=== PATIENT | female | born 1990 | race Caucasian/White ===

== ENCOUNTER 2017-07-03 11:57 | Observation (INO) | payer BC, OTHER ==
[~2017-07-03] VITALS: Ht 160 cm; Wt 108.0 kg
[~2017-07-03 11:57] MED LIST: HYDR-3580 PO
[2017-07-03 12:00] VITALS: BP 132/77; PULSE 82; RESP 20; TEMP 97.6; O2SAT 99
[2017-07-03] MEDS ORDERED: cefTRIAXone INJ 1,000 MG in SODIUM CHLORIDE 0.9% INJ 100 ML IV ONE (13:00)
--- NOTE | 2017-07-03 13:05 | PD ---
HPI Chief Complaint R flank pain Date Seen: Jul 03, 2017 Time Seen: 12:57 Travel History International Travel<30 Days: No Contact w/Intl Traveler<30Days: No Known Affected Area: No History of Present Illness HPI 27y/o @ 36.2wks. She has PNC with Nafisa Sy. She presents today with c/o R flank pain since yesterday, getting worse in severity. She denies dysuria/hematuria. Has a h/o kidney stones. No OB complaints (no ctx, LOF, VB , +FM). Weeks Gestation: 36 Para: 0 : 2 History Past Medical History Narrative Medical h/o kidney stones Obstetric History Obstetric History 1. AB --> D&C 2. current Past Surgical History Narrative Surgical D&C cervical spine discectomy tonsillectomy wisdom teeth extraction ear tubes Family History Family History: Negative Social History Alcohol Use: No Tobacco Use: No Substance Abuse: No Allergies-Medications (Allergen,Severity, Reaction): Coded Allergies: No Known Allergies (Unverified , 04/24/15) Home Meds Active Scripts Hydrocodone/Acetaminophen 7.5 mg/325 mg (Hydrocodone/Acetaminophen 7.5 mg/325 mg ) 1 Tab Tab, 1 TAB PO Q4H Y for PAIN SCALE 1 TO 5, #50 TAB Prov:Hemal Sahu MD 04/24/15 Review of Systems Except as stated in HPI: all other systems reviewed are Neg Physical Exam Vital Signs Date Time Temp Pulse Resp B/P (MAP) Pulse Ox O2 Delivery O2 Flow Rate FiO2 07/03/17 12:00 97.6 82 20 132/77 (95) 99 Narrative General: well developed, well nourished, no acute distress HEENT: normocephalic atraumatic, extraocular movements intact, neck supple Abdomen: soft, gravid, nontender, nondistended, +CVA tenderness on R Uterus: fundus above umbilicus Extremities: full range of motion Skin: normal coloration, no rashes, no suspicious skin lesions noted Neurologic: cranial nerves 2-12 grossly intact, normal muscle tone, normal gait Psychiatric: normal mood and affect, appropriate FHTs: 140s, +accels, no decels, moderate variability, reactive [place]: quiet Cvx: deferred Data Data Vital Signs Reviewed: Yes Orders Orders Vital Signs (Adult) .ON ADMISSION (07/03/17 12:49) ^ Labor Status (07/03/17 12:49) Urinalysis - C+S If Indicated (07/03/17 12:49) ^ Non Stress Test (07/03/17 12:49) Us Kidney/Renal/Bladder (07/03/17 ) Ceftriaxone Inj (Rocephin Inj) (07/03/17 13:00) MDM Plan 27y/o @ 36.2wks with R flank pain. -- UA with large LE and blood, neg nitrites -- pyelonephritis vs. nephrolithiasis with UTI -- US kidney ordered -- 1g IV rocephin in triage -- NST reactive Dispo: pending US findings Diagnosis Diagnosis: Primary Impression: 36 weeks gestation of Additional Impression: Flank pain, acute Daniella Lopez MD Jul 03, 2017 13:05
[2017-07-03 13:26] LABS: BACTERIA, URINE FEW /hpf; BILIRUBIN, URINE NEG (NEG); BLOOD, URINE MOD (NEG); GLUCOSE,URINE NEG (NEG); KETONE, URINE NEG (NEG); MUCUS URINE FEW /lpf (OCC); NITRITE,URINE NEG (NEG); SQUAMOUS EPITHELIAL CELL URINE 6 /hpf (0-5); URINE COLOR YELLOW (YELLW/STRAW); URINE LEUKOCYTE ESTERASE LARGE (NEG)
--- NOTE | 2017-07-03 15:02 | RADRPT ---
EXAM DATE/TIME: 07/03/2017 13:59 [facility] COMPARISON: No previous studies available for comparison. INDICATIONS : Flank pain. MEDICAL HISTORY : Renal calculi. 36 weeks . Numbness. Fractured right clavicle. Cervical disc disease. SURGICAL HISTORY : Tonsillectomy. Dilation and curettage. Ear tubes. ENCOUNTER: Initial ACUITY: 1 day PAIN SCORE: 4/10 LOCATION: Bilateral flank MEASUREMENTS: RIGHT KIDNEY: 11.1 x 6.5 x 6.4 cm LEFT KIDNEY: 10.7 x 5.2 x 5.9 cm FINDINGS: RIGHT KIDNEY: Renal cortex is normal in thickness and echotexture. There is mild prominence of the collecting syste m. No definite stones are demonstrated. No evidence of mass. LEFT KIDNEY: Renal cortex is normal in thickness and echotexture. No hydronephrosis, stone, or mass. BLADDER: Urinary bladder is decompressed. CONCLUSION: 1. Mild prominence of the right collecting system suggestive of some mild hydronephrosis. 2. Otherwise, the rest of the examination is grossly unremarkable. Denis Whelan MD on July 03, 2017 at 14:59 Board Certified Radiologist. This report was verified electronically.
[2017-07-03] MEDS ORDERED: ONDANSETRON ODT 4 MG TAB PO PRN (15:45)
[2017-07-03] MEDS ORDERED: ZOLPIDEM TARTRATE 5 MG TAB PO PRN (15:45)
[2017-07-03] MEDS ORDERED: ACETAMINOPHEN/HYDROcodone 325 MG/5 MG TAB PO PRN ×2 (15:45)
[2017-07-03] MEDS ORDERED: ONDANSETRON HCL 4 MG/2 ML VIAL IV PUSH PRN (15:45)
[2017-07-03] MEDS ORDERED: SODIUM CHLORIDE 0.9% FLUSH 10 ML FLUSH IV FLUSH PRN (15:45)
[2017-07-03] MEDS ORDERED: MORPHINE SULFATE 4 MG/ML INJ IV PUSH PRN (15:45)
[2017-07-03] MEDS ORDERED: ACETAMINOPHEN 325 MG TAB PO PRN (15:45)
--- NOTE | 2017-07-03 16:03 | HHI.PR ---
SYSTEMS ENG Note Note Antepartum Admission H&P HPI Chief Complaint R flank pain Date Seen: Jul 03, 2017 Time Seen: 12:57 Travel History International Travel<30 Days: No Contact w/Intl Traveler<30Days: No Known Affected Area: No History of Present Illness HPI 27y/o @ 36.2wks. She has PNC with Nafisa Sy. She presents today with c/o R flank pain since yesterday, getting worse in severity. She denies dysuria/hematuria. Has a h/o kidney stones. No OB complaints (no ctx, LOF, VB , +FM). Weeks Gestation: 36 Para: 0 : 2 History Past Medical History Narrative Medical h/o kidney stones Obstetric History Obstetric History 1. AB --> D&C 2. current Past Surgical History Narrative Surgical D&C cervical spine discectomy tonsillectomy wisdom teeth extraction ear tubes Family History Family History: Negative Social History Alcohol Use: No Tobacco Use: No Substance Abuse: No Allergies-Medications (Allergen,Severity, Reaction): Coded Allergies: No Known Allergies (Unverified , 04/24/15) Home Meds Active Scripts Hydrocodone/Acetaminophen 7.5 mg/325 mg (Hydrocodone/Acetaminophen 7.5 mg/325 mg ) 1 Tab Tab, 1 TAB PO Q4H Y for PAIN SCALE 1 TO 5, #50 TAB Prov:Hemal Sahu MD 04/24/15 Review of Systems Except as stated in HPI: all other systems reviewed are Neg Physical Exam Vital Signs Date Time Temp Pulse Resp B/P (MAP) Pulse Ox O2 Delivery O2 Flow Rate FiO2 07/03/17 12:00 97.6 82 20 132/77 (95) 99 Narrative General: well developed, well nourished, no acute distress HEENT: normocephalic atraumatic, extraocular movements intact, neck supple Abdomen: soft, gravid, nontender, nondistended, +CVA tenderness on R Uterus: fundus above umbilicus Extremities: full range of motion Skin: normal coloration, no rashes, no suspicious skin lesions noted Neurologic: cranial nerves 2-12 grossly intact, normal muscle tone, normal gait Psychiatric: normal mood and affect, appropriate FHTs: 140s, +accels, no decels, moderate variability, reactive Gisela: quiet Cvx: deferred Data Data Vital Signs Reviewed: Yes Orders Orders Vital Signs (Adult) .ON ADMISSION (07/03/17 12:49) ^ Labor Status (07/03/17 12:49) Urinalysis - C+S If Indicated (07/03/17 12:49) ^ Non Stress Test (07/03/17 12:49) Us Kidney/Renal/Bladder (07/03/17 ) Ceftriaxone Inj (Rocephin Inj) (07/03/17 13:00) MDM Plan 27y/o @ 36.2wks with R flank pain. -- UA with large LE and blood, neg nitrites -- pyelonephritis vs. nephrolithiasis with UTI -- US kidney ordered -- 1g IV rocephin in triage -- NST reactive Dispo: pending US findings Diagnosis Diagnosis: Primary Impression: 36 weeks gestation of Additional Impression: Flank pain, acute Daniella Lopez MD Jul 03, 2017 13:05 Addendum: Daniella Lopez MD on 07/03/17 @ 15:50 Renal US performed and demonstrates mild R hydronephrosis. No evidence fo calculi or stranding. Pt reports worsening of flank pain. Plan to admit to [facility] for IV abx. Rocephin 1g q12hrs IV. [place] PO and morphine IV PRN. Regular diet, SCDs. BID NSTs. Daniella Lopez MD Jul 03, 2017 16:03
[2017-07-03] MEDS ORDERED: ALFALFA PO ×2 (16:37)
[2017-07-03] MEDS: LACTATED RINGER'S 1000 ML INJ 1,000 ML IV SCH ×2 (16:42→21:28)
[2017-07-03] MEDS: SODIUM CHLORIDE 0.9% FLUSH 10 ML FLUSH IV FLUSH SCH (21:00)
[2017-07-03] MEDS: cefTRIAXone INJ 1,000 MG in SODIUM CHLORIDE 0.9% INJ 100 ML IV SCH (21:03)
[2017-07-04] MEDS: LACTATED RINGER'S 1000 ML INJ 1,000 ML IV SCH (07:33)
--- NOTE | 2017-07-04 08:32 | PD.OB.ANTE ---
Subjective Diagnosis: (1) Pyelonephritis Diagnosis: Principal (2) 36 weeks gestation of Diagnosis: Principal Interval History Patient seen and examined this morning by medical team. No acute events overnight per nursing staff. Patient states that her pain is well controlled and denies any new fevers, chills, dysuria, hematuria, or stone passage. She endorses good movement and also denies any vaginal discharge or loss of fluid. Otherwise she has no complaints and denies any chest pain, SOB, ABD pain , NVD, or calf tenderness. Antepartum ROS: Reports: movement normal, Denies: New complaints, Loss of fluid, Vaginal bleeding, Contractions Objective Vital Signs Vital Signs Date Time Temp Pulse Resp B/P (MAP) Pulse Ox O2 Delivery O2 Flow Rate FiO2 07/03/17 12:00 97.6 82 20 132/77 (95) 99 Lab & Micro Results Test 07/03/17 12:30 Urine Color YELLOW Urine Turbidity HAZY Urine pH 7.0 Urine Specific [place] 1.006 Urine Protein TRACE mg/dL Urine Glucose (UA) NEG mg/dL Urine Ketones NEG mg/dL Urine Occult Blood MOD Urine Nitrite NEG Urine Bilirubin NEG Urine Urobilinogen LESS THAN 2.0 MG/DL Urine Leukocyte Esterase LARGE Urine RBC 19 /hpf Urine WBC 20 /hpf Urine Squamous Epithelial Cells 6 /hpf Urine Bacteria FEW /hpf Urine Mucus FEW /lpf Microscopic Urinalysis Comment CULTURE INDICATED Date/Time Source Procedure Growth Status 07/03/17 12:30 Urine Clean Catch Urine Culture Pending Received Physical Exam GENERAL: Well-nourished, well-developed patient. CARDIOVASCULAR: Regular rate and rhythm without murmurs, gallops, or rubs. RESPIRATORY: Breath sounds equal bilaterally. No accessory muscle use. ABDOMEN/GI: Abdomen soft, non-tender. Fundus: 36w FHT's: Category: 1 Baseline: 130s Reactive: Positive Variability: Moderate Decels: None EXTREMITIES: No cyanosis or edema, non-tender, without signs of DVT. Assessment and Plan Problem List: (1) Pyelonephritis ICD Codes: N12 - Tubulo-interstitial nephritis, not specified as acute or chronic Status: Acute (2) 36 weeks gestation of ICD Codes: Z3A.36 - 36 weeks gestation of Status: Acute Assessment and Plan Ms. Cade is a 27 y/o at 36/3 weeks gestation admitted for pyelonephritis 1. IUP at 36 weeks -Continue routine OB care -Encourage oral hydration and PNV -Category 1 tracing, reassuring 2. Pyelonephritis -UA concerning for infection -Urine culture pending -Renal US: Mild prominence of the R collecting system suggestive of mild hydronephrosis. Otherwise normal. -Continue Ceftriaxone (07/03- ) -[place] as needed for pain Discharge: Possibly today pending clinical course. Plan to discharge home on antibiotics for a minimum of 10 total days. DW: Levi Fenton MD R2 Jul 04, 2017 08:32
[2017-07-04] MEDS: cefTRIAXone INJ 1,000 MG in SODIUM CHLORIDE 0.9% INJ 100 ML IV SCH (08:54)
[2017-07-04] MEDS: SODIUM CHLORIDE 0.9% FLUSH 10 ML FLUSH IV FLUSH SCH (08:55)
[2017-07-04] MEDS ORDERED: MULTIVIT/MIN/PREN/FOL AC/IRON PRENATAL TAB PO SCH (09:00)
[2017-07-04] MEDS ORDERED: DOCUSATE SODIUM 100 MG CAP PO SCH (09:00)
[2017-07-04] MEDS ORDERED: MACR100C2 PO (09:09)
--- NOTE | 2017-07-04 09:09 | HHI.DCPOC ---
Discharge Care Plan Diagnosis: (1) Pyelonephritis (2) 36 weeks gestation of Report Symptoms to Your Doctor -Temperature above 100.5 degrees -Redness, of incision or excessive or foul smelling drainage -Unusual pain or calf pain -Increased vaginal bleeding -Painful or difficulty urinating -Feelings of extreme sadness or anxiety after 2 weeks Goals to Promote Your Health * To prevent worsening of your condition and complications * To maintain your health at the optimal level Directions to Meet Your Goals Take your medications as prescribed Follow your dietary instruction Follow activity as directed Ensure plenty of rest for recovery Drink fluids for hydration Keep your appointments as scheduled Take your immunizations and boosters as scheduled If your symptoms worsen call your PCP, if no PCP go to Urgent Care Center or Emergency Room Smoking is Dangerous to Your Health. Avoid second hand smoke Call the 24-hour crisis hotline for domestic abuse at Levi Whitehead MD R2 Jul 04, 2017 09:09
== END 2017-07-04 09:30 | disposition home or self-care (01) ==
LOC: HOBED 11:57 → H2EA 16:02
PROVIDERS: ADMIT Obstetrics & Gynecology; ATTEND Obstetrics & Gynecology
DX: O23.03 Infections of kidney in pregnancy, third trimester (principal); N12 Tubulo-interstitial nephritis, not specified as acute or chronic; Z3A.36 36 weeks gestation of pregnancy; Z87.442 Personal history of urinary calculi
CPT/HCPCS: 76775; 81001; 87086; 96361; 96365; 96366; 99285; G0378; J0696; J7120

== ENCOUNTER 2017-07-06 21:38 | Inpatient (IN) | payer BC ==
[2017-07-06] VITALS (7 sets, daily range): BP systolic 104; BP diastolic 43; PULSE 72–92; RESP 18; TEMP 98
[~2017-07-06] VITALS: Ht 160 cm; Wt 108.0 kg
[~2017-07-06 21:38] MED LIST changes: +ALFALFA PO; +MACR100C2 PO
[2017-07-06] MEDS ORDERED: LACTATED RINGER'S 1000 ML INJ 1,000 ML IV SCH (22:29)
--- NOTE | 2017-07-06 22:48 | PD ---
HPI Chief Complaint right flank pain Date Seen: Jul 06, 2017 Time Seen: 22:37 Travel History International Travel<30 Days: No Contact w/Intl Traveler<30Days: No Known Affected Area: No History of Present Illness HPI pt is a 27 y/o @ 38 3/7 weeks w/ edc 07/16/17 present w/ c/o right flank pain. pt. states was here 2 days ago w/ same c/o and dx w/ pyelneph vs stone. pt. states has h/o stones. pt. txd w/ rocephin and had some improvement in pain and d/c on po macrobid. pt. states that began having pain again last pm and worsened today. states feels like stone of past. denies fever/chills, n/v , cp/sob. . states pain is just upper right flank, sharp and dull. pt. states voiding and helena po w/o diff. +FM, no lof/vb. Weeks Gestation: 38 Para: 0 : 2 History Past Medical History Medical History: Denies Significant Hx Obstetric History Obstetric History w/ sab and d&c x 1 Past Surgical History Narrative Surgical D&C Family History Family History: Negative Social History Alcohol Use: No Tobacco Use: No Substance Abuse: No Allergies-Medications (Allergen,Severity, Reaction): Coded Allergies: No Known Allergies (Unverified , 04/24/15) Home Meds Active Scripts Nitrofurantoin Monohydrate Macrocrystals (Macrobid) 100 Mg Capsule, 100 MG PO BID for Infection, #30 CAP 0 Refills Take one capsule twice a day for 13 days, then take one capsule nightly until delivery. Prov:Levi Whitehead MD R2 07/04/17 Reported Medications [Ceiba] No Conflict Check, 7 TAB PO DAILY 07/03/17 Discontinued Scripts Hydrocodone/Acetaminophen 7.5 mg/325 mg (Hydrocodone/Acetaminophen 7.5 mg/325 mg ) 1 Tab Tab, 1 TAB PO Q4H Y for PAIN SCALE 1 TO 5, #50 TAB Prov:Hemal Sahu MD 04/24/15 Physical Exam Narrative GENERAL: Well-nourished, well-developed patient. SKIN: Warm and dry. HEAD: Normocephalic and atraumatic. EYES: No scleral icterus. No injection or drainage. ENT: No nasal drainage noted. Mucous membranes pink. Airway patent. NECK: Supple, trachea midline. No JVD. CARDIOVASCULAR: Regular rate and rhythm without murmurs, gallops, or rubs. RESPIRATORY: Breath sounds equal bilaterally. No accessory muscle use. ABDOMEN/GI: Abdomen soft, non-tender, bowel sounds present, no rebound, no guarding Gravid right cva tenderness GENITOURINARY: FHT's: Category: 1 Reactive: + Variability: mod Decels:none EXTREMITIES: No cyanosis or edema. BACK: Nontender without obvious deformity. CVA tenderness. NEUROLOGICAL: Awake and alert. Motor and sensory grossly within normal limits. Five out of 5 muscle strength in all muscle groups. Normal speech. Data Data Vital Signs Reviewed: Yes Orders Orders Admit To Inpatient (07/06/17 ) Code Status (07/06/17 22:29) Vital Signs (Adult) .Per protocol (07/06/17 22:29) Activity Oob Ad Shyann (07/06/17 22:29) Lactated Ringer's 1000 Ml Inj (Lr 1000 M (07/06/17 22:29) Fentanyl Inj (Fentanyl Inj) (07/06/17 22:30) Fentanyl Inj (Fentanyl Inj) (07/06/17 22:30) Complete Blood Count With Diff (07/06/17 22:29) Urinalysis - C+S If Indicated (07/06/17 22:29) Inpatient Certification (07/06/17 ) Ceftriaxone Inj (Rocephin Inj) (07/06/17 22:45) Us Kidney/Renal/Bladder (07/06/17 ) [facility] Medical Record Reviewed: Yes Plan pt. to be admitted to hospital. pt. to have rocephin 2 gm q 12. pt. to have cath ua w/ c&s. pt. to have renal u/s r/o stones. Condition: Stable Александр Ernandez Jr., MD Jul 06, 2017 22:48
[2017-07-06 22:50] LABS: AUTOMATED NEUTROPHIL # 11.2 TH/MM3 (1.8-7.7); BASOPHIL # 0.1 TH/MM3 (0-0.2); BASOPHIL % 0.7 % (0.0-2.0); EOSINOPHIL % 0.3 % (0.0-4.0); HEMATOCRIT 33.1 % (35.0-46.0); HEMOGLOBIN 11.2 GM/DL (11.6-15.3); LYMPH % 17.2 % (9.0-44.0); LYMPHOCYTE # 2.5 TH/MM3 (1.0-4.8); MEAN CELL VOLUME 79.8 FL (80.0-100.0); MEAN CORPUSCULAR HGB CONC 33.8 % (32.0-36.0); MEAN PLATELET VOLUME 8.4 FL (7.0-11.0); MONO % 5.1 % (0.0-8.0); MONOCYTE # 0.7 TH/MM3 (0-0.9); NEUT % 76.7 % (16.0-70.0); PLATELET COUNT 282 TH/MM3 (150-450); RED BLOOD COUNT 4.14 MIL/MM3 (4.00-5.30); RED CELL DISTRIBUTION WIDTH 14.7 % (11.6-17.2); WHITE BLOOD COUNT 14.5 TH/MM3 (4.0-11.0)
[2017-07-06] MEDS: cefTRIAXone INJ 2,000 MG in SODIUM CHLORIDE 0.9% INJ 100 ML IV SCH (23:00)
[2017-07-06 23:21] LABS: BILIRUBIN, URINE NEG (NEG); BLOOD, URINE MOD (NEG); GLUCOSE,URINE NEG (NEG); KETONE, URINE 10 mg/dL (NEG); MUCUS URINE MOD /lpf (OCC); NITRITE,URINE NEG (NEG); RENAL EPITHELIAL CELLS <1 /hpf; SQUAMOUS EPITHELIAL CELL URINE 2 /hpf (0-5); TRANSITIONAL EPI CELLS, URINE <1 /hpf; URINE COLOR YELLOW (YELLW/STRAW); URINE LEUKOCYTE ESTERASE SMALL (NEG)
[2017-07-07] VITALS (26 sets, daily range): BP systolic 118–127; BP diastolic 70–83; PULSE 69–82; RESP 18
--- NOTE | 2017-07-07 00:13 | HHI.HP ---
History & Physical H&P HPI Chief Complaint right flank pain Date Seen: Jul 06, 2017 Time Seen: 22:37 Travel History International Travel<30 Days: No Contact w/Intl Traveler<30Days: No Known Affected Area: No History of Present Illness HPI pt is a 27 y/o @ 38 3/7 weeks w/ edc 07/16/17 present w/ c/o right flank pain. pt. states was here 2 days ago w/ same c/o and dx w/ pyelneph vs stone. pt. states has h/o stones. pt. txd w/ rocephin and had some improvement in pain and d/c on po macrobid. pt. states that began having pain again last pm and worsened today. states feels like stone of past. denies fever/chills, n/v , cp/sob. . states pain is just upper right flank, sharp and dull. pt. states voiding and helena po w/o diff. +FM, no lof/vb. Weeks Gestation: 38 Para: 0 : 2 History Past Medical History Medical History: Denies Significant Hx Obstetric History Obstetric History w/ sab and d&c x 1 Past Surgical History Narrative Surgical D&C Family History Family History: Negative Social History Alcohol Use: No Tobacco Use: No Substance Abuse: No Allergies-Medications (Allergen,Severity, Reaction): Coded Allergies: No Known Allergies (Unverified , 04/24/15) Home Meds Active Scripts Nitrofurantoin Monohydrate Macrocrystals (Macrobid) 100 Mg Capsule, 100 MG PO BID for Infection, #30 CAP 0 Refills Take one capsule twice a day for 13 days, then take one capsule nightly until delivery. Prov:Levi Whitehead MD R2 07/04/17 Reported Medications [[place]] No Conflict Check, 7 TAB PO DAILY 07/03/17 Discontinued Scripts Hydrocodone/Acetaminophen 7.5 mg/325 mg (Hydrocodone/Acetaminophen 7.5 mg/325 mg ) 1 Tab Tab, 1 TAB PO Q4H Y for PAIN SCALE 1 TO 5, #50 TAB Prov:Hemal Sahu MD 04/24/15 Physical Exam Narrative GENERAL: Well-nourished, well-developed patient. SKIN: Warm and dry. HEAD: Normocephalic and atraumatic. EYES: No scleral icterus. No injection or drainage. ENT: No nasal drainage noted. Mucous membranes pink. Airway patent. NECK: Supple, trachea midline. No JVD. CARDIOVASCULAR: Regular rate and rhythm without murmurs, gallops, or rubs. RESPIRATORY: Breath sounds equal bilaterally. No accessory muscle use. ABDOMEN/GI: Abdomen soft, non-tender, bowel sounds present, no rebound, no guarding Gravid right cva tenderness GENITOURINARY: FHT's: Category: 1 Reactive: + Variability: mod Decels:none EXTREMITIES: No cyanosis or edema. BACK: Nontender without obvious deformity. CVA tenderness. NEUROLOGICAL: Awake and alert. Motor and sensory grossly within normal limits. Five out of 5 muscle strength in all muscle groups. Normal speech. Data Data Vital Signs Reviewed: Yes Orders Orders Admit To Inpatient (07/06/17 ) Code Status (07/06/17 22:29) Vital Signs (Adult) .Per protocol (07/06/17 22:29) Activity Oob Ad Shyann (07/06/17 22:29) Lactated Ringer's 1000 Ml Inj (Lr 1000 M (07/06/17 22:29) Fentanyl Inj (Fentanyl Inj) (07/06/17 22:30) Fentanyl Inj (Fentanyl Inj) (07/06/17 22:30) Complete Blood Count With Diff (07/06/17 22:29) Urinalysis - C+S If Indicated (07/06/17 22:29) Inpatient Certification (07/06/17 ) Ceftriaxone Inj (Rocephin Inj) (07/06/17 22:45) Us Kidney/Renal/Bladder (07/06/17 ) [facility] Medical Record Reviewed: Yes Plan pt. to be admitted to hospital. pt. to have rocephin 2 gm q 12. pt. to have cath ua w/ c&s. pt. to have renal u/s r/o stones. Condition: Stable Александр Ernandez Jr., MD, Arthur N. Jr. MD Jul 07, 2017 00:13
[2017-07-07] MEDS ORDERED: SODIUM CHLOR 0.9% 1000 ML INJ 1,000 ML IV SCH (05:30)
--- NOTE | 2017-07-07 08:51 | RADRPT ---
EXAM DATE/TIME: 07/07/2017 08:01 [facility] COMPARISON: US KIDNEY/RENAL/BLADDER, July 03, 2017, 13:59. INDICATIONS : Flank pain. MEDICAL HISTORY : Kidney stones. SURGICAL HISTORY : Tonsillectomy. D&C. PE tubes. ENCOUNTER: Subsequent ACUITY: 4-6 days PAIN SCORE: LOCATION: Bilateral flank MEASUREMENTS: RIGHT KIDNEY: 13.1 x 5.9 x 6.0 cm LEFT KIDNEY: 11.7 x 5.9 x 4.7 cm FINDINGS: RIGHT KIDNEY: Renal cortex is normal in thickness and echotexture. Mild hydronephrosis of the right kidney unchange d No stone, or mass. LEFT KIDNEY: Renal cortex is normal in thickness and echotexture. No hydronephrosis, or mass. 3 x 2 mm calcifica tion lower pole left kidney consistent with a stone BLADDER: Within normal limits given the degree of distension. CONCLUSION: Mild hydronephrosis right kidney. Small stone lower pole left kidney. No interval change. Carlos Johns MD on July 07, 2017 at 8:49 Board Certified Radiologist. This report was verified electronically.
--- NOTE | 2017-07-07 10:06 | PD.OB.ANTE ---
Subjective Interval History Patient reports continued right-sided back pain at this time. Pain has not changed position, stays on the right, is still present however is reduced with pain medications. She also reports blood in her urine, "it smells like asparagus" denies dysuria, frequency. States she has normal light white discharge today. Denies discharge of other color, malodorous smell, bloody discharge. No abdominal pain, chest pain, shortness of breath, change in vision , headache. No nausea, vomiting, fever, chills. No other complaints today. Objective Vital Signs Vital Signs Date Time Temp Pulse Resp B/P (MAP) Pulse Ox O2 Delivery O2 Flow Rate FiO2 07/07/17 07:56 78 127/83 (98) 07/07/17 03:32 22 07/07/17 01:51 18 07/07/17 01:45 77 07/07/17 01:40 75 07/07/17 01:35 82 07/07/17 01:30 75 07/07/17 01:25 76 07/07/17 01:20 71 07/07/17 01:15 75 07/07/17 01:10 74 07/07/17 01:05 74 07/07/17 01:00 18 07/07/17 01:00 75 07/07/17 01:00 18 07/07/17 00:55 70 07/07/17 00:50 69 07/07/17 00:45 72 07/07/17 00:40 75 07/07/17 00:35 79 07/07/17 00:30 71 07/07/17 00:25 70 07/07/17 00:20 72 07/07/17 00:15 72 07/07/17 00:10 79 07/07/17 00:05 71 07/07/17 00:00 76 07/07/17 00:00 18 07/06/17 23:55 72 07/06/17 23:50 75 07/06/17 23:45 77 07/06/17 23:30 98.0 18 07/06/17 23:25 91 07/06/17 23:20 92 104/43 (63) 07/06/17 23:15 83 Lab & Micro Results Test 07/06/17 22:20 07/06/17 22:40 White Blood Count 14.5 TH/MM3 Red Blood Count 4.14 MIL/MM3 Hemoglobin 11.2 GM/DL Hematocrit 33.1 % Mean Corpuscular Volume 79.8 FL Mean Corpuscular Hemoglobin 27.0 PG Mean Corpuscular Hemoglobin Concent 33.8 % Red Cell Distribution Width 14.7 % Platelet Count 282 TH/MM3 Mean Platelet Volume 8.4 FL Neutrophils (%) (Auto) 76.7 % Lymphocytes (%) (Auto) 17.2 % Monocytes (%) (Auto) 5.1 % Eosinophils (%) (Auto) 0.3 % Basophils (%) (Auto) 0.7 % Neutrophils # (Auto) 11.2 TH/MM3 Lymphocytes # (Auto) 2.5 TH/MM3 Monocytes # (Auto) 0.7 TH/MM3 Eosinophils # (Auto) 0.0 TH/MM3 Basophils # (Auto) 0.1 TH/MM3 CBC Comment DIFF FINAL Differential Comment Urine Color YELLOW Urine Turbidity CLEAR Urine pH 6.0 Urine Specific [place] 1.009 Urine Protein TRACE mg/dL Urine Glucose (UA) NEG mg/dL Urine Ketones 10 mg/dL Urine Occult Blood MOD Urine Nitrite NEG Urine Bilirubin NEG Urine Urobilinogen LESS THAN 2.0 MG/DL Urine Leukocyte Esterase SMALL Urine RBC 29 /hpf Urine WBC 7 /hpf Urine Squamous Epithelial Cells 2 /hpf Urine Transitional Epithelial Cells <1 /hpf Urine Renal Epithelial Cells <1 /hpf Urine Mucus MOD /lpf Microscopic Urinalysis Comment CATH-CULT NOT IND Physical Exam GENERAL: Well-nourished, well-developed patient. CARDIOVASCULAR: Regular rate and rhythm without murmurs, gallops, or rubs. RESPIRATORY: Breath sounds equal bilaterally. No accessory muscle use. ABDOMEN/GI: Abdomen soft, non-tender, no rebound. BACK: Right-sided CVA tenderness FHT's: Category: 1 Baseline: 130 Reactive: Yes Variability: Moderate Decels: None EXTREMITIES: No cyanosis or edema, non-tender, without signs of DVT. Assessment and Plan Assessment and Plan 27-year-old at 36/6 who initially presented with right flank pain which has been described as how it felt last time she had a kidney stone. History of many episodes of nephrolithiasis in the past. Afebrile. UA shows moderate blood, small LE, 7 WBC. WBCs 14.5. renal ultrasound shows mild hydronephrosis in the right kidney, small stone in the lower left kidney pole. No interval change. Being treated with ceftriaxone 2 g every 12 hours -Continue ceftriaxone 2 g every 12 hours -Follow-up CT abdomen for nephrolithiasis. Risks and benefits previously discussed with patient by Dr. Ernandez, patient expressed understanding and agreed -Fentanyl as needed for pain -Category 1 tracing reassuring -Continue FHT monitoring D/W Giuliano Kilpatrick MD R1 Jul 07, 2017 10:06
[2017-07-07] MEDS ORDERED: ONDANSETRON HCL 4 MG/2 ML VIAL IV PUSH PRN (10:30)
[2017-07-07] MEDS: cefTRIAXone INJ 2,000 MG in SODIUM CHLORIDE 0.9% INJ 100 ML IV SCH (10:40)
--- NOTE | 2017-07-07 15:25 | RADRPT ---
EXAM DATE/TIME: 07/07/2017 14:52 [facility] COMPARISON: No previous studies available for comparison. INDICATIONS : Right flank pain, history of multiple renal stones ORAL CONTRAST: No oral contrast ingested. RADIATION DOSE: 19.95 CTDIvol (mGy) MEDICAL HISTORY : Renal calculi. SURGICAL HISTORY : None. ENCOUNTER: Initial ACUITY: 1 day PAIN SCALE: 6/10 LOCATION: Right flank TECHNIQUE: Volumetric scanning of the abdomen was performed. Using automated exposure control and adjustment of the mA and/or kV according to patient size, radiation dose was kept as low as reasonably achievable to obtain optimal diagnostic quality images. DICOM format image data is available electronically for review and comparison. FINDINGS: LOWER LUNGS: The visualized lower lungs are clear. LIVER: Homogeneous density without lesion. There is no dilation of the biliary tree. No calcified gallston es. SPLEEN: Normal size without lesion. PANCREAS: Within normal limits. KIDNEYS: Normal in size and shape. There is no no hydronephrosis on the left. There are 3 punctate nonobstruc ting left-sided renal calculi measuring 2-4 mm in size. Mild to moderate hydronephrosis of the right kidney and proximal hydroureter. ADRENAL GLANDS: Within normal limits. AORTA/RETROPERITONEAL: There is no aneurysm or lymphadenopathy. BOWEL/MESENTERY: The stomach and visualized small and large bowel demonstrate no abnormality. Intrauterine n oted. MUSCULOSKELETAL: Within normal limits for patient age. CONCLUSION: 1. Mild to moderate hydronephrosis of the right kidney and hydroureter proximally. Suspect a distal o bstructing calculus. 2. A few punctate nonobstructing left-sided renal calculi. Simon Colvin MD on July 07, 2017 at 15:22 Board Certified Radiologist. This report was verified electronically.
[2017-07-07] MEDS ORDERED: HYDR-3516 PO (16:48)
--- NOTE | 2017-07-07 16:48 | HHI.DCPOC ---
Discharge Care Plan Diagnosis: (1) Pyelonephritis Report Symptoms to Your Doctor -Temperature above 100.5 degrees -Redness, of incision or excessive or foul smelling drainage -Unusual pain or calf pain -Increased vaginal bleeding -Painful or difficulty urinating -Feelings of extreme sadness or anxiety after 2 weeks Goals to Promote Your Health * To prevent worsening of your condition and complications * To maintain your health at the optimal level Directions to Meet Your Goals Take your medications as prescribed Follow your dietary instruction Follow activity as directed Ensure plenty of rest for recovery Drink fluids for hydration Keep your appointments as scheduled Take your immunizations and boosters as scheduled If your symptoms worsen call your PCP, if no PCP go to Urgent Care Center or Emergency Room Smoking is Dangerous to Your Health. Avoid second hand smoke Call the 24-hour crisis hotline for domestic abuse at Giuliano Paredes MD R1 Jul 07, 2017 16:48
[2017-07-07] MEDS ORDERED: ACETAMINOPHEN/HYDROcodone 325 MG/5 MG TAB PO ONE (17:00)
== END 2017-07-07 17:28 | disposition home or self-care (01) | DRG 781 ==
LOC: HOBED 21:38 → H2EA 22:41
PROVIDERS: ADMIT Obstetrics & Gynecology; ATTEND Obstetrics & Gynecology
DX: O26.833 Pregnancy related renal disease, third trimester (principal); N13.2 Hydronephrosis with renal and ureteral calculous obstruction; Z3A.38 38 weeks gestation of pregnancy
CPT/HCPCS: 51701; 59025; 74150; 76775; 81001; 85025; 87086; J0696; J2405; J3010; J7030; J7120

== ENCOUNTER 2017-07-28 18:04 | Inpatient (IN) | payer BC ==
[~2017-07-28] VITALS: Ht 160 cm; Wt 110.0 kg
[~2017-07-28 18:04] MED LIST changes: -ALFALFA PO; +HYDR-3516 PO; -HYDR-3580 PO
[2017-07-28] MEDS ORDERED: LACTATED RINGER'S 1000 ML INJ 1,000 ML IV PRN (20:40)
--- NOTE | 2017-07-28 20:40 | HHI.HP ---
HPI Chief Complaint Patient here for induction Date Seen: Jul 28, 2017 Time Seen: 20:35 Travel History International Travel<30 Days: No Contact w/Intl Traveler<30Days: No Known Affected Area: No History of Present Illness HPI Patient is a 27-year-old who is at 41 weeks by second trimester ultrasound and 41 weeks 5 days by fairly certain last menstrual cycle. She has been seeing Nafisa Sy for care which has been uncomplicated. Patient states that her cervix has been negative and initially she had a positive group B strep but after she was treated for UTI with antibiotics the office repeated her group B strep but it was only an intravaginal culture and not a rectal culture. Patient is very interested in our policy of delayed cord clamping and delay bathing and she also desires to take her placenta home Weeks Gestation: 41 Para: 0 : 2 Miscarriage: 1 History Past Medical History Medical History: Denies Significant Hx Past Surgical History Narrative Surgical Tonsillectomy [place] teeth Cervical discectomy Family History Family History: Negative Social History Alcohol Use: No Tobacco Use: No Substance Abuse: No Allergies-Medications (Allergen,Severity, Reaction): Coded Allergies: No Known Allergies (Unverified , 04/24/15) Home Meds Active Scripts Hydrocodone-Acetaminophen (Hydrocodone-Acetaminophen) 5-325 mg Tab, 1 TAB PO Q6H Y for PAIN, #12 TAB 0 Refills Prov:Giuliano Paredes MD R1 07/07/17 Nitrofurantoin Monohydrate Macrocrystals (Macrobid) 100 Mg Capsule, 100 MG PO BID for Infection, #30 CAP 0 Refills Take one capsule twice a day for 13 days, then take one capsule nightly until delivery. Prov:Levi Whitehead MD R2 07/04/17 Review of Systems Except as stated in HPI: all other systems reviewed are Neg Physical Exam Narrative GENERAL: Well-nourished, well-developed patient. SKIN: Warm and dry. HEAD: Normocephalic and atraumatic. EYES: No scleral icterus. No injection or drainage. ENT: No nasal drainage noted. Mucous membranes pink. Airway patent. NECK: Supple, trachea midline. No JVD. CARDIOVASCULAR: Regular rate and rhythm without murmurs, gallops, or rubs. RESPIRATORY: Breath sounds equal bilaterally. No accessory muscle use. ABDOMEN/GI: Abdomen soft, non-tender, bowel sounds present, no rebound, no guarding Gravid to [-] weeks size 40 Fundal Height: [-] GENITOURINARY: External Genitalia: intact and normal in appearance BUS glands: [-] Normal Cervix: [-] Posterior Dilatation: [-] Closed Effacement: [-] Long Station: [-] High Presentation: [-] Vertex Membranes: [intact or ruptured] intact Uterine Contractions: [-] Absent FHT's: Category: [-] 1 Baseline: [-] 140 Reactive: [-] Moderate Variability: [-] Moderate Decels: [-] Absent EXTREMITIES: No cyanosis or edema. BACK: Nontender without obvious deformity. No CVA tenderness. NEUROLOGICAL: Awake and alert. Motor and sensory grossly within normal limits. Five out of 5 muscle strength in all muscle groups. Normal speech. Caprini VTE Risk Assessment Caprini VTE Risk Assessment: No/Low Risk (score <= 1) Caprini Risk Assessment Model Point Value = 1 Point Value = 2 Point Value = 3 Point Value = 5 Age 41-60 Minor surgery BMI > 25 kg/m2 Swollen legs Varicose veins or History of unexplained or recurrent spontaneous Oral contraceptives or hormone replacement Sepsis (< 1 month) Serious lung disease, including pneumonia (< 1 month) Abnormal pulmonary function Acute myocardial infarction Congestive heart failure (< 1 month) History of inflammatory bowel disease Medical patient at bed rest Age 61-74 Arthroscopic surgery Major open surgery (> 45 min) Laparoscopic surgery (> 45 min) Malignancy Confined to bed (> 72 hours) Immobilizing plaster cast Central venous access Age >= 75 History of VTE Family history of VTE Factor V Leiden Prothrombin [id number] Lupus anticoagulant Anticardiolipin antibodies Elevated serum homocysteine Heparin-induced thrombocytopenia Other congenital or acquired thrombophilia Stroke (< 1 month) Elective arthroplasty Hip, pelvis, or leg fracture Acute spinal cord injury (< 1 month) Prophylaxis Regimen Total Risk Factor Score Risk Level Prophylaxis Regimen 0-1 Low Early ambulation 2 Moderate Order ONE of the following: *Sequential Compression Device (SCD) *Heparin 5000 units SQ BID 3-4 Higher Order ONE of the following medications: *Heparin 5000 units SQ TID *Enoxaparin/Lovenox 40 mg SQ daily (WT < 150 kg, CrCl > 30 mL/min) *Enoxaparin/Lovenox 30 mg SQ daily (WT < 150 kg, CrCl > 10-29 mL/min) *Enoxaparin/Lovenox 30 mg SQ BID (WT < 150 kg, CrCl > 30 mL/min) AND/OR *Sequential Compression Device (SCD) 5 or more Highest Order ONE of the following medications: *Heparin 5000 units SQ TID (Preferred with Epidurals) *Enoxaparin/Lovenox 40 mg SQ daily (WT < 150 kg, CrCl > 30 mL/min) *Enoxaparin/Lovenox 30 mg SQ daily (WT < 150 kg, CrCl > 10-29 mL/min) *Enoxaparin/Lovenox 30 mg SQ BID (WT < 150 kg, CrCl > 30 mL/min) AND *Sequential Compression Device (SCD) Data Data Vital Signs Reviewed: Yes Orders Orders Complete Blood Count With Diff (07/28/17 20:13) Abo/Rh Blood Type (07/28/17 20:13) Hold Clot (07/28/17 20:13) Urinalysis - C+S If Indicated (07/28/17 20:13) Specimen To Be Collected PRN (07/28/17 20:13) Ob/Psych Drug Screen, Urine (07/28/17 20:13) Group B Strep: Positive Assessment/Plan Problem List: (1) 41 weeks gestation of ICD Codes: Z3A.41 - 41 weeks gestation of (2) Post-term infant with 40-42 completed weeks of gestation ICD Codes: P08.21 - Post-term (3) Mother positive for group B Streptococcus colonization ICD Codes: P00.2 - affected by maternal infectious and parasitic diseases Gianna Cantu MD Jul 28, 2017 20:40
[2017-07-28] MEDS ORDERED: MINERAL OIL 10 ML VIAL TOPICAL PRN (20:45)
[2017-07-28] MEDS ORDERED: LIDOCAINE HCL 1% 50 ML VIAL I-DERMAL PRN (20:45)
[2017-07-28] MEDS ORDERED: CITRIC ACID-SODIUM CITRATE LIQ 30 ML UDC PO SCH (20:45)
[2017-07-28] MEDS ORDERED: SODIUM CHLORID 0.9% 500 ML INJ 500 ML IV PRN (20:45)
[2017-07-28] MEDS ORDERED: OXYTOCIN 30 UNITS-500ML PREMIX 500 ML IV ONE (20:45)
[2017-07-28] MEDS ORDERED: LIDOCAINE HCL 1% 50 ML VIAL INFIL PRN (20:45)
[2017-07-28] MEDS ORDERED: SODIUM CHLORIDE 0.9% FLUSH 10 ML FLUSH IV FLUSH PRN (20:45)
[2017-07-28] MEDS ORDERED: ONDANSETRON HCL 4 MG/2 ML VIAL IV PUSH PRN (20:45)
[2017-07-28] MEDS ORDERED: MISOPROSTOL 100 MCG TAB VAGINAL ONE (20:45)
[2017-07-28 20:52] LABS: AUTOMATED NEUTROPHIL # 7.5 TH/MM3 (1.8-7.7); BASOPHIL % 0.3 % (0.0-2.0); EOSINOPHIL % 0.2 % (0.0-4.0); HEMATOCRIT 31.3 % (35.0-46.0); HEMOGLOBIN 10.7 GM/DL (11.6-15.3); LYMPH % 19.3 % (9.0-44.0); LYMPHOCYTE # 1.9 TH/MM3 (1.0-4.8); MEAN CELL VOLUME 80.2 FL (80.0-100.0); MEAN CORPUSCULAR HEMOGLOBIN 27.3 PG (27.0-34.0); MEAN PLATELET VOLUME 8.7 FL (7.0-11.0); MONO % 5.6 % (0.0-8.0); MONOCYTE # 0.6 TH/MM3 (0-0.9); NEUT % 74.6 % (16.0-70.0); PLATELET COUNT 256 TH/MM3 (150-450); RED BLOOD COUNT 3.91 MIL/MM3 (4.00-5.30); RED CELL DISTRIBUTION WIDTH 15.9 % (11.6-17.2)
[2017-07-28] MEDS: LACTATED RINGER'S 1000 ML INJ 1,000 ML IV SCH (20:57)
[2017-07-28] MEDS ORDERED: PENICILLIN G POTASSIUM INJ 5,000,000 UNITS in SODIUM CHLORIDE 0.9% INJ 100 ML IV ONE (21:00)
[2017-07-28] MEDS: SODIUM CHLORIDE 0.9% FLUSH 10 ML FLUSH IV FLUSH SCH (21:00)
[2017-07-28] MEDS ORDERED: SODIUM CHLOR 0.9% 1000 ML INJ 1,000 ML IV PRN (21:00)
[2017-07-28 21:06] VITALS: BP 137/90; PULSE 86
[2017-07-28 21:14] VITALS: RESP 16
[2017-07-28 21:23] LABS: BILIRUBIN, URINE NEG (NEG); BLOOD, URINE TRACE (NEG); CALCIUM OXALATE CRYSTALS,URINE FEW /hpf; GLUCOSE,URINE NEG (NEG); KETONE, URINE TRACE mg/dL (NEG); MUCUS URINE FEW /lpf (OCC); NITRITE,URINE NEG (NEG); SQUAMOUS EPITHELIAL CELL URINE 6 /hpf (0-5); URINE COLOR YELLOW (YELLW/STRAW); URINE LEUKOCYTE ESTERASE LARGE (NEG)
[2017-07-28] MEDS: diphenhydrAMINE HCL 25 MG CAP PO PRN (22:43)
[2017-07-28 22:46] VITALS: TEMP 97.8
[2017-07-29] VITALS (72 sets, daily range): BP systolic 84–144; BP diastolic 43–121; PULSE 59–159; RESP 15–19; TEMP 97.6–98.2; O2SAT 99–100
[2017-07-29] MEDS ORDERED: MISOPROSTOL 25 MCG TAB VAGINAL PRN (00:45)
[2017-07-29] MEDS ORDERED: PENICILLIN G POTASSIUM INJ 2,500,000 UNITS in SODIUM CHLORIDE 0.9% INJ 100 ML IV SCH ×2 (01:00→09:00)
[2017-07-29] MEDS ORDERED: fentaNYL 2MCG-BUPIV 0.125% INJ 100 ML ONE (05:34)
[2017-07-29] MEDS ORDERED: DO NOT ADMINISTER ANTICOAGULANTS PRN (06:30)
[2017-07-29] MEDS ORDERED: ePHEDrine/NS 25 MG/5 ML SYRINGE IV PUSH PRN (06:30)
[2017-07-29] MEDS ORDERED: NO SYSTEM NARCOTICS PRN (06:30)
[2017-07-29] MEDS: LACTATED RINGER'S 1000 ML INJ 1,000 ML IV SCH (07:11)
[2017-07-29] MEDS: fentaNYL 2MCG-BUPIV 0.125% 100 ML EPIDURAL SCH ×2 (07:12→08:03)
[2017-07-29] MEDS: diphenhydrAMINE HCL 25 MG CAP PO PRN ×3 (07:49→21:09)
[2017-07-29] MEDS: SODIUM CHLORIDE 0.9% FLUSH 10 ML FLUSH IV FLUSH SCH (09:00)
[2017-07-29] MEDS ORDERED: OXYTOCIN 30 UNITS/NS 500ML PREMIX IV PRN (09:30)
[2017-07-29] MEDS ORDERED: TERBUTALINE INJ 1 MG/ML AMP ONE (10:04)
[2017-07-29] MEDS ORDERED: MORPHINE SULFATE PF 5 MG/10 ML VIAL ONE (11:09)
[2017-07-29] MEDS ORDERED: LIDOCAINE 2%/EPINEPHrine PF 1:200,000 20ML SDV OTHER ONE (12:00)
[2017-07-29] MEDS ORDERED: ceFAZolin INJ 1,000 MG VIAL IV ONE (12:00)
[2017-07-29] MEDS ORDERED: ONDANSETRON HCL 4 MG/2 ML VIAL IV ONE (12:00)
[2017-07-29] MEDS ORDERED: OXYTOCIN 10 UNIT/ML AMP IV ONE (12:00)
[2017-07-29] MEDS ORDERED: ACETAMINOPHEN 1000 MG/100 ML 100 ML IV ONE (12:12)
--- NOTE | 2017-07-29 12:41 | HHI.PR ---
Subjective Remarks OB Hg The patient is a 27-year-old with IUP at 41.6. She underwent a Cytotec induction of labor overnight and ruptured spontaneously with meconium fluid. Overnight she had heart rate decelerations which improved with amnioinfusion. She was started on oxytocin which was not tolerated by the fetus. The oxytocin was discontinued, she received IV fluids and oxygen. I presented to the patient's room and discussed the plan of care as well as the goal for a healthy . We discussed that while her goal is a vaginal delivery there are occasions where a delivery needs to be performed to ensure a healthy . I discussed that there are some concerns overnight with the ability to tolerate labor as well just prior to assuming care for the patient. Her cervical exam is 5 cm dilated as per EMR@10 AM. I discussed with the patient the goals of a healthy with a secondary goal of a vaginal delivery. I discussed the risks of vaginal delivery which can include but are not limited to 34th degree lacerations and shoulder dystocia with the risk of permanent and irreversible neurological injury. I discussed the risks of which include but are not limited to pain, infection, bleeding, injury to other organs like the bladder/bowel/nerves/vessels, injury to the baby, need for hysterectomy, need for blood transfusion, need for repeat operation, wound infection/breakdown, and other associated risks. The patient expressed understanding and was in agreement that if the fetus develops subsequent rounds of heart rate decelerations we would proceed with delivery. Prior to restarting oxytocin the fetus had several severe variable decelerations and bradycardia. The patient was repositioned and continued on oxygen. She received an additional 100 cc amnio infusion and 0.25 mg of terbutaline was given. Discussed with the patient that at this time it would be prudent to proceed with delivery and the patient's in agreement. The heart rate pattern improved to baseline in the 140s to 150s with long-term variability noted by scalp lead. The patient and her family were in agreement for delivery. Objective Vital Signs Date Time Temp Pulse Resp B/P (MAP) Pulse Ox O2 Delivery O2 Flow Rate FiO2 07/29/17 12:30 118 18 100 07/29/17 12:30 91/51 (64) 07/29/17 12:15 98.0 100 07/29/17 12:15 102 18 90/49 (63) 07/29/17 11:11 159 99/51 (67) 07/29/17 10:55 100 144/121 (129) 07/29/17 09:51 68 102/52 (69) 07/29/17 09:33 66 94/51 (65) 07/29/17 09:31 18 07/29/17 09:25 76 07/29/17 09:20 68 07/29/17 09:15 69 07/29/17 09:10 71 07/29/17 09:05 84 07/29/17 09:00 74 07/29/17 08:55 72 07/29/17 08:50 67 07/29/17 08:45 18 07/29/17 08:45 97.9 07/29/17 08:45 71 07/29/17 08:42 66 104/43 (63) 07/29/17 08:40 59 07/29/17 08:35 60 07/29/17 08:30 59 07/29/17 08:25 63 07/29/17 08:20 62 07/29/17 08:15 65 07/29/17 08:10 63 07/29/17 08:05 71 07/29/17 08:00 65 07/29/17 08:00 18 07/29/17 07:55 73 07/29/17 07:50 77 07/29/17 07:45 67 07/29/17 07:40 78 07/29/17 07:35 69 07/29/17 07:31 63 112/64 (80) 07/29/17 07:30 69 07/29/17 07:25 59 07/29/17 07:20 71 07/29/17 07:15 65 07/29/17 07:15 98.1 07/29/17 07:10 72 07/29/17 07:05 75 07/29/17 07:02 18 07/29/17 07:01 72 109/62 (78) 07/29/17 07:00 69 07/29/17 06:55 88 100 07/29/17 06:54 89 121/59 (79) 07/29/17 06:50 68 100 07/29/17 06:45 76 100 07/29/17 06:40 71 100 07/29/17 06:35 82 100 07/29/17 06:31 71 122/72 (89) 07/29/17 06:30 96 100 07/29/17 06:25 74 100 07/29/17 06:20 82 100 07/29/17 06:15 81 100 07/29/17 06:11 80 117/63 (81) 07/29/17 06:10 99 07/29/17 06:10 100 07/29/17 06:06 84 123/69 (87) 07/29/17 06:05 84 100 07/29/17 06:00 89 07/29/17 06:00 85 132/82 (99) 100 07/29/17 05:56 86 127/71 (89) 07/29/17 05:55 100 07/29/17 05:55 86 07/29/17 05:52 92 132/75 (94) 07/29/17 05:45 99 07/29/17 05:45 87 07/29/17 04:43 19 07/29/17 04:37 98.2 07/29/17 04:37 83 143/92 (109) 07/29/17 02:00 98.0 15 07/29/17 01:10 82 120/67 (84) 07/28/17 22:46 97.8 07/28/17 21:14 16 07/28/17 21:06 86 137/90 (106) Result Diagram: 07/28/17 1900 Mira Holguin MD Jul 29, 2017 12:40
--- NOTE | 2017-07-29 12:56 | PD.OB.DELI ---
Procedure Note Section Procedure Performed by Mira Holguin Procedure: Primary Low Transverse Sec Indication for delivery: Nonreassuring heart tracing, Other ( inability to tolerate labor) Informed consent obtained: For anesthesia, For procedure Confirmed correct: Patient, Procedure, Site, Time-out taken Anesthesia: Epidural Medication prior to procedure: As documented in eMAR Monitoring during procedure: Blood pressure monitoring, yacht rigger, doppler, monitor, Pulse oximetry Urinary catheter: Inserted using sterile technique, To dependent drainage Sterile preparation: In usual fashion, Other (Chloraprep) Position: Supine with wedge to left side Operative Features Skin Incision: Pfannenstiel Uterine Incision: Low transverse w/knife / blunt ext Membranes Ruptured: Previously, Appearance of fluid (light meconium at time of delivery) Presentation: Occiput anterior Delivery date: Jul 29, 2017 Delivery time: 11:27 Delivery of infant: Uneventful : Female One Minute : 8 Five Minute : 8 Weight: 3660g Status of : Viable, Cord blood, Umbilical cord, Nursery present Placenta delivered: Intact, Other (patient requested) Medications: Antibiotics, Oxytocin Estimated blood loss: 700 Procedure tolerated: Well Maternal Condition: Stable Condition: Stable Procedure in detail See dictation Mira Holguin MD Jul 29, 2017 12:56
[2017-07-29] MEDS ORDERED: OXYTOCIN 30 UNITS-500ML PREMIX 500 ML IV ONE (13:00)
[2017-07-29] MEDS ORDERED: ACETAMINOPHEN 325 MG TAB PO PRN (13:00)
[2017-07-29] MEDS ORDERED: SIMETHICONE 80 MG CHEWABLE TAB PO PRN (13:00)
[2017-07-29] MEDS ORDERED: oxyCODONE/ACETAMINOPHEN 5 MG/325 MG TAB PO PRN (13:00)
[2017-07-29] MEDS ORDERED: ZOLPIDEM TARTRATE 5 MG TAB PO PRN (13:00)
[2017-07-29] MEDS ORDERED: ONDANSETRON HCL 4 MG/2 ML VIAL IV PUSH PRN (13:00)
[2017-07-29] MEDS ORDERED: SODIUM CHLORIDE 0.9% FLUSH 10 ML FLUSH IV FLUSH PRN (13:00)
[2017-07-29] MEDS ORDERED: LACTATED RINGER'S 1000 ML INJ 1,000 ML IV SCH (17:57)
[2017-07-29] MEDS ORDERED: SODIUM CHLORIDE 0.9% FLUSH 10 ML FLUSH IV FLUSH SCH (21:00)
[2017-07-29] MEDS ORDERED: OXYTOCIN 30 UNITS-500ML PREMIX 500 ML IV PRN (23:00)
[2017-07-30 07:31] LABS: AUTOMATED NEUTROPHIL # 10.4 TH/MM3 (1.8-7.7); BASOPHIL % 0.2 % (0.0-2.0); EOSINOPHIL % 0.3 % (0.0-4.0); HEMATOCRIT 26.1 % (35.0-46.0); HEMOGLOBIN 8.8 GM/DL (11.6-15.3); LYMPH % 14.2 % (9.0-44.0); LYMPHOCYTE # 1.9 TH/MM3 (1.0-4.8); MEAN CELL VOLUME 81.1 FL (80.0-100.0); MEAN CORPUSCULAR HEMOGLOBIN 27.5 PG (27.0-34.0); MEAN CORPUSCULAR HGB CONC 33.9 % (32.0-36.0); MEAN PLATELET VOLUME 8.2 FL (7.0-11.0); MONO % 6.1 % (0.0-8.0); MONOCYTE # 0.8 TH/MM3 (0-0.9); NEUT % 79.2 % (16.0-70.0); PLATELET COUNT 190 TH/MM3 (150-450); RED BLOOD COUNT 3.21 MIL/MM3 (4.00-5.30); RED CELL DISTRIBUTION WIDTH 15.9 % (11.6-17.2); WHITE BLOOD COUNT 13.1 TH/MM3 (4.0-11.0)
--- NOTE | 2017-07-30 08:10 | HHI.OB ---
Subjective Post Operative Day: 1 Remarks Postoperative day # 1. AFVSS overnight. Pain well controlled. Incision clean, dry, and intact, not draining. Lochia < a period. Denies dysuria. No breast tenderness. She is feeding the baby via breast. Appetite good. No nausea or vomiting. Ambulating well. Denies fever, chills, cough, shortness of breath, chest pain, and calf pain. Otherwise, she is doing well this morning and has no other complaints. Objective Vitals/I&O Vital Signs Date Time Temp Pulse Resp B/P (MAP) Pulse Ox O2 Delivery O2 Flow Rate FiO2 07/29/17 15:05 18 07/29/17 14:00 18 07/29/17 13:30 97.6 18 07/29/17 13:30 89 95/50 (65) 07/29/17 13:02 88 18 100/54 (69) 100 07/29/17 13:00 97.8 93 18 100 07/29/17 12:47 105/57 (73) 07/29/17 12:45 104 18 84/44 (57) 100 07/29/17 12:30 118 18 100 07/29/17 12:30 91/51 (64) 07/29/17 12:15 98.0 100 07/29/17 12:15 102 18 90/49 (63) 07/29/17 11:11 159 99/51 (67) 07/29/17 10:55 100 144/121 (129) 07/29/17 09:51 68 102/52 (69) 07/29/17 09:33 66 94/51 (65) 07/29/17 09:31 18 07/29/17 09:25 76 07/29/17 09:20 68 07/29/17 09:15 69 07/29/17 09:10 71 07/29/17 09:05 84 07/29/17 09:00 74 07/29/17 08:55 72 07/29/17 08:50 67 07/29/17 08:45 18 07/29/17 08:45 97.9 07/29/17 08:45 71 07/29/17 08:42 66 104/43 (63) 07/29/17 08:40 59 07/29/17 08:35 60 07/29/17 08:30 59 07/29/17 08:25 63 07/29/17 08:20 62 07/29/17 08:15 65 07/29/17 08:10 63 Result Diagram: 07/30/17 0715 Objective Remarks GENERAL: Well-nourished, well-developed patient. CARDIOVASCULAR: Regular rate and rhythm without murmurs, gallops, or rubs. RESPIRATORY: Breath sounds equal bilaterally. No accessory muscle use. ABDOMEN/GI: Abdomen soft, non-tender, bowel sounds present. Incision: Clean, dry and intact. Fundus: Firm, non-tender at umbilicus. GENITOURINARY: Light to moderate bleeding. EXTREMITIES: No cyanosis or edema, non-tender, without signs of DVT. Medications and IVs Current Medications Medications (Trade) Dose Ordered Sig/Sushila Route Start Time Stop Time Status Last Admin (Xylocaine 1% Inj (50 ml)) 0.1 ml UNSCH X1 PRN I-DERMAL 07/28/17 20:45 07/31/17 20:44 (Bicitra Liq) 30 ml EARLY CHIL[employer]OCIATE PO 07/28/17 20:45 08/01/17 20:44 (Xylocaine 1% Inj (50 ml)) 10 ml UNSCH X1 PRN INFIL 07/28/17 20:45 07/30/17 20:44 (Muri-Lube Oil) 10 ml UNSCH PRN TOPICAL 07/28/17 20:45 (Benadryl) 25 mg Q6H PRN PO 07/28/17 22:15 07/29/17 21:09 Fentanyl/ Bupivacaine HCl 100 ml @ 0 mls/hr TITRATE EPIDURAL 07/29/17 06:30 07/29/17 07:12 Penicillin G Potassium 5563521 units/Sodium Chloride 100 ml @ 200 mls/hr Q4H IV 07/29/17 09:00 07/29/17 08:41 Oxytocin 500 ml @ 0 mls/hr TITRATE PRN IV 07/29/17 09:30 07/29/17 09:49 Lactated Ringer's 1,000 ml @ 100 mls/hr Q10H IV 07/29/17 17:57 07/30/17 13:56 Oxytocin 500 ml @ 100 mls/hr UNSCH X1 PRN IV 07/29/17 23:00 07/30/17 22:59 (NS Flush) 2 ml BID IV FLUSH 07/29/17 21:00 (NS Flush) 2 ml UNSCH PRN IV FLUSH 07/29/17 13:00 (Mylicon Chew) 80 mg QID PRN PO 07/29/17 13:00 (Tylenol) 650 mg Q6H PRN PO 07/29/17 13:00 (Motrin) 600 mg Q6H PRN PO 07/29/17 13:00 (Percocet 5-325 Mg) 1 tab Q4H PRN PO 07/29/17 13:00 (Percocet 5-325 Mg) 2 tab Q4H PRN PO 07/29/17 13:00 (Sabi-Colace) 2 tab Q12H PRN PO 07/29/17 13:00 (Ambien) 5 mg HS PRN PO 07/29/17 13:00 (M-M-R Ii Inj) 0.5 ml ONCE ONCE SQ 07/30/17 16:00 07/30/17 16:01 (Boostrix Inj) 0.5 ml ONCE ONCE IM 07/30/17 16:00 07/30/17 16:01 07/30/17 06:03 (Zofran Inj) 4 mg Q6H PRN IV PUSH 07/29/17 13:00 Assessment/Plan Problem List: (1) 41 weeks gestation of ICD Codes: Z3A.41 - 41 weeks gestation of (2) Post-term infant with 40-42 completed weeks of gestation ICD Codes: P08.21 - Post-term (3) Mother positive for group B Streptococcus colonization ICD Codes: P00.2 - affected by maternal infectious and parasitic diseases Assessment and Plan 27 y/o female who is POD#1 s/p CS for distress -Continue routine care -Percocet and Motrin PRN pain -Pericolase PRN for constipation -Encouraged OOB. Advised pelvic rest for 6 wks -Will need a follow-up appointment within 1 week for incision check -Re: ctrl -undecided but is considering an IUD Discussed with Carie Torres MD Jul 30, 2017 08:10
[2017-07-30] MEDS: IBUPROFEN 600 MG TAB PO PRN ×2 (08:30→19:51)
[2017-07-30] MEDS: DOCUSATE SODIUM 50 MG/SENNA 8.6 MG TAB PO PRN (08:30)
[2017-07-30] MEDS: oxyCODONE/ACETAMINOPHEN 5 MG/325 MG TAB PO PRN ×2 (08:30→19:51)
--- NOTE | 2017-07-30 08:30 | MP ---
cc: Mira Holguin MD DATE OF OPERATION: 07/29/2017 DATE OF SURGERY: July 29, 2017 PREOPERATIVE DIAGNOSES: 1. Intrauterine at 41.6. 2. inability to tolerate labor. 3. Obesity. 4. Meconium. POSTOPERATIVE DIAGNOSES: 1. Intrauterine at 41.6. 2. inability to tolerate labor. 3. Obesity. 4. Meconium. PROCEDURE PERFORMED: Primary low transverse section with 2-layer closure and no extensions via Pfannenstiel skin incision. DESCRIPTION OF FINDINGS: Viable female in the cephalic presentation with Apgars 8 and 8, weighing 3660 grams. Cord pH 7.29. The patient had normal maternal anatomy with normal fallopian tubes, uterus, and ovaries. ATTENDING SURGEON: Dr. Mira Holguin ESCALATOR CONSTRUCTOR: Isela Craig. Jaquelin Etienne. SPECIMENS REMOVED: Placenta. ESTIMATED BLOOD LOSS: 700 mL URINE OUTPUT: 50 mL, clear urine at the end of the procedure. PROCEDURE INDICATION: The patient is a 27-year-old 2, para 0-0-1-0 who presented at 41 weeks and 5 days for post-term induction of labor. She underwent Cytotec induction and progressed to 3 cm dilated. She continued to progress in labor to 5 cm dilated; however, had several episodes of repetitive decelerations although with absence of contractions the heart rate was very reassuring. PROCEDURE DESCRIPTION: After obtaining informed consent with risks, benefits and alternatives discussed at length including, but not limited to pain, infection, bleeding, injury to other organs like the bladder, bowels, nerves and vessels, injury to the baby, need for blood transfusion, need for repeat operation, need for hysterectomy, wound infection and breakdown and other possible complications, the patient was taken to the operating room where her epidural was redosed. The scalp lead was utilized to monitor the fetus during the preoperative process and had reassuring heart tones throughout. The patient was placed in the dorsal supine position with a leftward tilt. After confirming adequate anesthesia, the patient was prepped and draped in normal sterile fashion. A timeout procedure was performed. After once again confirming adequate anesthesia, a Pfannenstiel skin incision was made with the scalpel and carried down to the level of the fascia with the scalpel. The fascia was nicked in the midline and the fascial incision extended laterally in a blunt fashion. The rectus muscles were off the fascia, the superior aspect of the fascial incision in a blunt fashion. The inferior aspect of the fascial incision was also dissected off of the underlying rectus muscles in a blunt fashion. The rectus muscles were in the midline and the peritoneum entered bluntly. The peritoneal incision was extended bluntly. The Carlin self-retaining wound retractor was placed. Lower uterine segment was incised with the scalpel and the hysterotomy was extended bluntly. The head was delivered atraumatically and the scalp lead was transected. The remainder of the delivered atraumatically and was vigorous on the field. The remained vigorous so cord clamping was delayed by 45 seconds. After this time period the cord was doubly clamped and cut and the handed off to the waiting pediatric neonatology team. A segment of cord blood was obtained for cord pH and cord blood obtained for the nursery. The placenta was removed manually, and the uterus cleared of all clots and debris. The hysterotomy was repaired with a #1 chromic in a running locked fashion. A second layer of the same suture was used in an imbricating fashion after which excellent hemostasis was noted. The Carlin self-retaining wound retractor was removed and the maternal anatomy inspected and noted to be normal-appearing. The hysterotomy was again reinspected and noted to be hemostatic. The peritoneum was reapproximated with 2-0 Vicryl in a running fashion. The rectus muscles were examined and noted to be hemostatic. The fascia was reapproximated with 1 Vicryl in a running fashion. The subcutaneous tissue was irrigated with warm normal saline and noted to be without fascial defect. The subcutaneous tissue was noted to be hemostatic and was reapproximated with 2-0 Vicryl in an interrupted fashion. The skin edges were reapproximated with 3-0 Monocryl in a subcuticular fashion. Dermabond was placed. Excellent hemostasis and cosmesis were noted. All sponge, lap, and needle counts were correct x2. I performed the entire procedure myself. The patient was taken to the PACU in stable condition. MD ALPHONSO Maza/YONATAN , 08:03 AM , 08:29 AM
[2017-07-30] MEDS: diphenhydrAMINE HCL 25 MG CAP PO PRN (08:34)
[2017-07-30] MEDS ORDERED: DIPHTH/TETANUS/ACEL PERTUSSIS (BOOSTER) 0.5 ML VIAL/PFS IM ONE (16:00)
[2017-07-30] MEDS ORDERED: MEASLES, MUMPS, RUBELLA VACCINE 0.5 ML VIAL SQ ONE (16:00)
[2017-07-30 20:44] VITALS: BP 136/77; PULSE 102; RESP 18; TEMP 98.2
[2017-07-31] MEDS: IBUPROFEN 600 MG TAB PO PRN ×2 (03:31→09:37)
[2017-07-31] MEDS: oxyCODONE/ACETAMINOPHEN 5 MG/325 MG TAB PO PRN ×2 (03:31→09:37)
[2017-07-31] MEDS ORDERED: IBUP-232 PO (08:41)
[2017-07-31] MEDS ORDERED: PERI PO (08:41)
[2017-07-31] MEDS ORDERED: OXYC1TAB63 PO (08:41)
--- NOTE | 2017-07-31 09:16 | HHI.DCPOC ---
Discharge Care Plan Diagnosis: (1) care following delivery Report Symptoms to Your Doctor -Temperature above 100.5 degrees -Redness, of incision or excessive or foul smelling drainage -Unusual pain or calf pain -Increased vaginal bleeding -Painful or difficulty urinating -Feelings of extreme sadness or anxiety after 2 weeks Goals to Promote Your Health * To prevent worsening of your condition and complications * To maintain your health at the optimal level Directions to Meet Your Goals Take your medications as prescribed Follow your dietary instruction Follow activity as directed Ensure plenty of rest for recovery Drink fluids for hydration Keep your appointments as scheduled Take your immunizations and boosters as scheduled If your symptoms worsen call your PCP, if no PCP go to Urgent Care Center or Emergency Room Smoking is Dangerous to Your Health. Avoid second hand smoke Call the 24-hour crisis hotline for domestic abuse at Jerardo Iniguez MD Jul 31, 2017 09:16
--- NOTE | 2017-07-31 09:16 | HHI.OB ---
Subjective Post Operative Day: 2 Remarks Postoperative day number 2. AFVSS overnight. Pain minimal. Incision not draining. Decreased lochia. Denies dysuria. No breast tenderness. She is feeding the baby via breast. Appetite good. No nausea or vomiting. Endorses flatus. Has had 2 bowel movements. Ambulating well. Denies calf pain, shortness of breath, or cough. Otherwise, she is doing well this morning and has no other complaints. Objective Vitals/I&O Vital Signs Date Time Temp Pulse Resp B/P (MAP) Pulse Ox O2 Delivery O2 Flow Rate FiO2 07/30/17 20:44 98.2 102 18 136/77 (96) Result Diagram: 07/30/17 0715 Objective Remarks GENERAL: Well-nourished, well-developed patient. CARDIOVASCULAR: Regular rate and rhythm without murmurs, gallops, or rubs. RESPIRATORY: Breath sounds equal bilaterally. No accessory muscle use. ABDOMEN/GI: Abdomen soft, non-tender, bowel sounds present. Incision: Clean, dry and intact. Fundus: Firm, non-tender at umbilicus. GENITOURINARY: Light to moderate bleeding. EXTREMITIES: No cyanosis or edema, non-tender, without signs of DVT. Medications and IVs Current Medications Medications (Trade) Dose Ordered Sig/Sushila Route Start Time Stop Time Status Last Admin (Xylocaine 1% Inj (50 ml)) 0.1 ml UNSCH X1 PRN I-DERMAL 07/28/17 20:45 07/31/17 20:44 (Bicitra Liq) 30 ml CUPROUS CHLORIDE HELPER PO 07/28/17 20:45 08/01/17 20:44 (Muri-Lube Oil) 10 ml UNSCH PRN TOPICAL 07/28/17 20:45 (Benadryl) 25 mg Q6H PRN PO 07/28/17 22:15 07/30/17 08:34 Fentanyl/ Bupivacaine HCl 100 ml @ 0 mls/hr TITRATE EPIDURAL 07/29/17 06:30 07/29/17 07:12 Penicillin G Potassium [id number] units/Sodium Chloride 100 ml @ 200 mls/hr Q4H IV 07/29/17 09:00 07/29/17 08:41 Oxytocin 500 ml @ 0 mls/hr TITRATE PRN IV 07/29/17 09:30 07/29/17 09:49 (NS Flush) 2 ml BID IV FLUSH 07/29/17 21:00 (NS Flush) 2 ml UNSCH PRN IV FLUSH 07/29/17 13:00 (Mylicon Chew) 80 mg QID PRN PO 07/29/17 13:00 (Tylenol) 650 mg Q6H PRN PO 07/29/17 13:00 (Motrin) 600 mg Q6H PRN PO 07/29/17 13:00 07/31/17 03:31 (Percocet 5-325 Mg) 1 tab Q4H PRN PO 07/29/17 13:00 07/31/17 03:31 (Percocet 5-325 Mg) 2 tab Q4H PRN PO 07/29/17 13:00 (Sabi-Colace) 2 tab Q12H PRN PO 07/29/17 13:00 07/30/17 08:30 (Ambien) 5 mg HS PRN PO 07/29/17 13:00 (Zofran Inj) 4 mg Q6H PRN IV PUSH 07/29/17 13:00 Assessment/Plan Problem List: (1) 41 weeks gestation of ICD Codes: Z3A.41 - 41 weeks gestation of (2) Post-term infant with 40-42 completed weeks of gestation ICD Codes: P08.21 - Post-term (3) Mother positive for group B Streptococcus colonization ICD Codes: P00.2 - affected by maternal infectious and parasitic diseases Assessment and Plan 27 y/o female who is POD#2 s/p CS for distress -Continue routine care -Percocet and Motrin PRN pain -Pericolase PRN for constipation -Encouraged OOB. Advised pelvic rest for 6 wks -Will need a follow-up appointment within 1 week for incision check -Re: ctrl -undecided but is considering an IUD Jerardo Iniguez MD Jul 31, 2017 09:16
[2017-07-31] MEDS: DOCUSATE SODIUM 50 MG/SENNA 8.6 MG TAB PO PRN (09:37)
[2017-07-31] MEDS: diphenhydrAMINE HCL 25 MG CAP PO PRN (12:15)
== END 2017-07-31 14:52 | disposition home or self-care (01) | DRG 765 ==
LOC: H2EA 18:04 → H1EA 07-29 13:19
PROVIDERS: ADMIT Obstetrics & Gynecology Obstetrics; ATTEND Obstetrics & Gynecology Obstetrics
PROC: 3E0P7VZ Introduction of Hormone into Female Reproductive, Via Natural or Artificial Opening (ICD-10-PCS; 2017-07-28)
PROC: 10D00Z1 Extraction of Products of Conception, Low, Open Approach (ICD-10-PCS; principal; 2017-07-29)
PROC: 3E0E7GC Introduction of Other Therapeutic Substance into Products of Conception, Via Natural or Artificial Opening (ICD-10-PCS; 2017-07-29)
PROC: 3E0R3BZ Introduction of Anesthetic Agent into Spinal Canal, Percutaneous Approach (ICD-10-PCS; 2017-07-29)
PROC: 00HU33Z Insertion of Infusion Device into Spinal Canal, Percutaneous Approach (ICD-10-PCS; 2017-07-29)
DX: O48.0 Post-term pregnancy (principal); O99.214 Obesity complicating childbirth; E66.9 Obesity, unspecified; Z68.41 Body mass index [BMI] 40.0-44.9, adult; O76 Abnormality in fetal heart rate and rhythm complicating labor and delivery; O99.824 Streptococcus B carrier state complicating childbirth; O77.0 Labor and delivery complicated by meconium in amniotic fluid; Z37.0 Single live birth; Z3A.41 41 weeks gestation of pregnancy
CPT/HCPCS: 59025; 80307; 81001; 82805; 85025; 86900; 86901; 90715; G0481; J0131; J0690; J2274; J2405; J2540; J2590; J3105; J7030; J7120